=== PATIENT | male | born 1985 | race Caucasian/White ===

== ENCOUNTER 2017-07-17 00:02 | Emergency (ER) | payer SELFPAY ==
[~2017-07-17] VITALS: Ht 170.2 cm; Wt 77.1 kg
== END 2017-07-17 01:15 | disposition short-term general hospital (02) ==
LOC: ER 00:02
PROC: 0H9GXZZ Drainage of Left Hand Skin, External Approach (ICD-10-PCS; principal; 2017-07-17)
DX: L08.9 Local infection of the skin and subcutaneous tissue, unspecified (principal); F17.210 Nicotine dependence, cigarettes, uncomplicated